=== PATIENT | male | born 1950 | race Caucasian/White ===

== ENCOUNTER 2018-04-28 10:31 | Inpatient (IN) | payer MEDICARE ==
[~2018-04-28] VITALS: Ht 188 cm; Wt 88.0 kg
[2018-04-28] MEDS ORDERED: ONDANSETRON 2MG/ML, 2ML IVPush ONE (11:30)
[2018-04-28] MEDS ORDERED: HYDROmorphone 2 MG/ML, 1ML IVPush PRN (11:30)
[2018-04-28] MEDS ORDERED: SODIUM CHLORIDE 0.9% 1,000ML IVBOLUS ONE ×2 (11:30)
[2018-04-28] MEDS ORDERED: SODIUM CHLORIDE FLUSH 10ML SYR IVF ONE (11:30)
[2018-04-28 11:52] LABS: BASOPHILS # (AUTO) 0.05 x10^3/uL (0-0.1); BASOPHILS % (AUTO) 1 % (0-1); EOSINOPHILS # (AUTO) 0.06 x10^3/uL (0-0.4); EOSINOPHILS % (AUTO) 1 % (1-7); LYMPHOCYTES # (AUTO) 1.67 x10^3/uL (1-3.4); LYMPHOCYTES % (AUTO) 15 % (22-44); MD NO; MEAN CORPUSCULAR HEMOGLOBIN 32.6 pg (27.5-34.5); MEAN CORPUSCULAR HGB CONC 34.2 g/dL (33.2-36.2); MEAN CORPUSCULAR VOLUME 95.6 fL (81-97); MEAN PLATELET VOLUME 8.1 fL (7.4-10.4); MONOCYTES # (AUTO) 0.77 x10^3/uL (0.2-0.8); MONOCYTES % (AUTO) 7 % (2-9); NEUTROPHILS # (AUTO) 8.38 x10^3/uL (1.8-6.8); NEUTROPHILS % (AUTO) 77 % (42-75); PLATELET COUNT 304 x10^3/uL (130-400); RED BLOOD COUNT 4.19 x10^6/uL (4.38-5.82); RED CELL DISTRIBUTION WIDTH 13.6 % (9.4-14.8)
[2018-04-28 12:05] LABS: ALBUMIN 4.1 g/dL (3.4-5.0); ANION GAP 9 mmol/L (5-15); CALCIUM 9.2 mg/dL (8.5-10.1); CHLORIDE 109 mmol/L (98-107)
[2018-04-28 12:09] LABS: ALANINE AMINOTRANSFERASE 22 U/L (12-78); ALKALINE PHOSPHATASE 55 U/L (45-117); CREATININE 1.07 mg/dL (0.7-1.3)
[2018-04-28] MEDS ORDERED: LIDOCAINE-MPF 1%, 5ML ONE (13:00)
[2018-04-28] MEDS ORDERED: VITA1CAP PO (13:38)
[2018-04-28] MEDS ORDERED: ASPI-515 PO (13:38)
[2018-04-28] MEDS ORDERED: ZOLP-413 PO (13:38)
[2018-04-28] MEDS ORDERED: METO25TA35 PO (13:38)
[2018-04-28] MEDS ORDERED: LISI-170 PO (13:38)
[2018-04-28] MEDS ORDERED: SILD100T PO (13:38)
[2018-04-28] MEDS ORDERED: ATOR40TA78 PO (13:38)
[2018-04-28] MEDS ORDERED: DIAZ10TA4 PO (13:38)
[2018-04-28] MEDS ORDERED: CEPH-376 PO (13:38)
[2018-04-28] MEDS ORDERED: OXYC-302 PO (13:38)
[2018-04-28 14:08] LABS: GLUCOSE, CSF 62 mg/dL (40-80); TOTAL PROTEIN,CSF 32 mg/dL (15-45)
[2018-04-28] MEDS ORDERED: LABETALOL 5MG/ML, 20ML IVPush PRN (16:00)
[2018-04-28] MEDS ORDERED: ONDANSETRON ODT 4 MG PO PRN (16:00)
[2018-04-28] MEDS ORDERED: POLYETHYLENE GLYCOL 17 GM PACKET PO PRN (16:00)
[2018-04-28] MEDS ORDERED: ONDANSETRON 2MG/ML, 2ML IVPush PRN (16:00)
[2018-04-28 16:27] VITALS: BP 162/83
[2018-04-28] MEDS ORDERED: LIDOCAINE 2%-EPI 1:100K, 20ML INFIL ONE (17:00)
[2018-04-28] MEDS: D5%-0.45NACL+KCL 20MEQ 1,000 ML IV SCH (18:26)
[2018-04-28] MEDS ORDERED: FENTANYL PF 250 MCG/5ML ONE (19:27)
[2018-04-28] MEDS ORDERED: BUPIVACAINE/PF-EPI 0.5% 1:200K ONE (19:34)
[2018-04-28] MEDS ORDERED: EPHEDRINE 50 MG/ML, 1ML ONE (19:48)
[2018-04-28] MEDS ORDERED: KETOROLAC 30 MG/1 ML ONE (19:48)
[2018-04-28] MEDS ORDERED: VASOPRESSIN 20 UNIT/ML, 1ML ONE (19:48)
[2018-04-28] MEDS ORDERED: DIPHENHYDRAMINE 50 MG/ML, 1ML IVPush PRN (20:00)
[2018-04-28] MEDS ORDERED: hydrALAzine 20 MG/ML, 1ML IV PRN (20:00)
[2018-04-28] MEDS ORDERED: MORPHINE SULFATE 4 MG/ML, 1ML IVPush PRN (20:00)
[2018-04-28] MEDS ORDERED: PROCHLORPERAZINE 5 MG/ML, 2ML IV PRN (20:00)
[2018-04-28] MEDS ORDERED: LABETALOL 5MG/ML, 20ML IV PRN (20:00)
[2018-04-28] MEDS ORDERED: HYDROcodone/APAP 7.5-325MG/15ML UDC PO PRN (20:00)
[2018-04-28] MEDS ORDERED: ONDANSETRON 2MG/ML, 2ML ONE (20:45)
[2018-04-28] MEDS ORDERED: DEXAMETHASONE 4 MG/ML, 1ML ONE (20:45)
[2018-04-28] MEDS ORDERED: SUCCINYLCHOLINE 20 MG/ML, 10ML ONE (20:45)
[2018-04-28] MEDS ORDERED: NEOSTIGMINE 1 MG/ML, 10ML ONE (20:45)
[2018-04-28] MEDS ORDERED: ROCURONIUM 10MG/ML,5ML ONE (20:45)
[2018-04-28] MEDS ORDERED: PROPOFOL 10 MG/ML, 20ML ONE (20:45)
[2018-04-28] MEDS ORDERED: GLYCOPYRROLATE 0.2MG/1ML, 5ML ONE (20:45)
[2018-04-28] MEDS ORDERED: CEFAZOLIN 1,000 MG ONE (20:45)
[2018-04-28] MEDS: OXYcodone/APAP 5/325MG TABLET PO SCH (21:00)
[2018-04-28] MEDS ORDERED: ATORVASTATIN 80 MG TABLET PO SCH (21:00)
[2018-04-28] MEDS ORDERED: ZOLPIDEM 5MG TABLET PO SCH (21:00)
[2018-04-28] MEDS ORDERED: OXYcodone 5 MG/5 ML ORAL.SOL UDC ONE (21:07)
[2018-04-28] MEDS ORDERED: FENTANYL PF 100 MCG/2ML ONE (21:07)
[2018-04-28] MEDS: FENTANYL PF 100 MCG/2ML IV PRN ×2 (21:08→21:15)
[2018-04-28] MEDS ORDERED: MEPERIDINE/PF 50 MG/ML ONE (21:25)
[2018-04-28] MEDS: MEPERIDINE/PF 25MG/0.5ML IVPush PRN ×2 (21:25→21:30)
[2018-04-28] MEDS ORDERED: OXYcodone 5 MG/5 ML ORAL.SOL UDC PO PRN (21:30)
[2018-04-28 22:00] VITALS: BP 132/75
[2018-04-28] MEDS ORDERED: MORPHINE SULFATE 4 MG/ML, 1ML IV PRN (23:00)
[2018-04-29 00:56] VITALS: BP_SYST 113; BP_SYST 123; BP_DIAS 72; BP_DIAS 78
[2018-04-29] MEDS: D5%-0.45NACL+KCL 20MEQ 1,000 ML IV SCH ×2 (02:31→10:09)
[2018-04-29 03:53] VITALS: BP 116/72
[2018-04-29 05:42] LABS: BASOPHILS # (AUTO) 0.04 x10^3/uL (0-0.1); BASOPHILS % (AUTO) 0 % (0-1); EOSINOPHILS % (AUTO) 0 % (1-7); LYMPHOCYTES # (AUTO) 0.96 x10^3/uL (1-3.4); LYMPHOCYTES % (AUTO) 11 % (22-44); MD NO; MEAN CORPUSCULAR HGB CONC 34.9 g/dL (33.2-36.2); MEAN CORPUSCULAR VOLUME 94.7 fL (81-97); MEAN PLATELET VOLUME 8.3 fL (7.4-10.4); MONOCYTES # (AUTO) 0.21 x10^3/uL (0.2-0.8); MONOCYTES % (AUTO) 2 % (2-9); NEUTROPHILS # (AUTO) 7.98 x10^3/uL (1.8-6.8); NEUTROPHILS % (AUTO) 87 % (42-75); PLATELET COUNT 260 x10^3/uL (130-400); RED BLOOD COUNT 3.49 x10^6/uL (4.38-5.82); RED CELL DISTRIBUTION WIDTH 13.3 % (9.4-14.8)
[2018-04-29 05:47] LABS: CHLORIDE 108 mmol/L (98-107)
[2018-04-29 05:56] LABS: ALANINE AMINOTRANSFERASE 18 U/L (12-78); ALBUMIN 3.4 g/dL (3.4-5.0); ALKALINE PHOSPHATASE 45 U/L (45-117); ANION GAP 7 mmol/L (5-15); BILIRUBIN,TOTAL 0.9 mg/dL (0.2-1.0); CREATININE 0.99 mg/dL (0.7-1.3); TOTAL PROTEIN 6.7 g/dL (6.4-8.2)
[2018-04-29 06:34] LABS: CULTURE INDICATED? NO; MICROSCOPIC AUTO
[2018-04-29 06:46] LABS: AMPHETAMINE SCREEN, URINE Negative (Negative); BARBITURATE SCREEN, URINE Negative (Negative); BENZODIAZEPINE SCREEN, URINE Positive (Negative); CANNABINOID SCREEN, URINE Negative (Negative); COCAINE SCREEN, URINE Negative (Negative); METHADONE SCREEN, URINE Negative (Negative); OPIATE SCREEN, URINE Positive (Negative)
[2018-04-29 06:58] VITALS: BP 117/65
[2018-04-29] MEDS: OXYcodone/APAP 5/325MG TABLET PO SCH (08:35)
[2018-04-29] MEDS: TAMSULOSIN 0.4 MG CAP.ER.24H PO SCH ×2 (08:36→09:00)
[2018-04-29] MEDS ORDERED: LISINOPRIL 10 MG TABLET PO SCH (09:00)
[2018-04-29] MEDS ORDERED: MULTIVITS,STRESS FORMULA 1 TABLET PO SCH (09:00)
[2018-04-29] MEDS ORDERED: METOPROLOL TARTRATE 25 MG TABLET PO SCH (09:00)
[2018-04-29] MEDS ORDERED: SENNA/DOCUSATE TABLET PO SCH (09:00)
== END 2018-04-29 14:22 | disposition home or self-care (01) | DRG 907 ==
LOC: ED 14:04 → EDIP 14:52 → 4NOR 16:26 → DCLOUNGE 04-29 14:15
PROVIDERS: ADMIT Internal Medicine; ATTEND Family Medicine
PROC: 0HQ6XZZ Repair Back Skin, External Approach (ICD-10-PCS; 2018-04-28)
PROC: 009U3ZX Drainage of Spinal Canal, Percutaneous Approach, Diagnostic (ICD-10-PCS; 2018-04-28)
PROC: 0WCG0ZZ Extirpation of Matter from Peritoneal Cavity, Open Approach (ICD-10-PCS; principal; 2018-04-28 21:00)
DX: L76.32 Postprocedural hematoma of skin and subcutaneous tissue following other procedure (principal); G93.41 Metabolic encephalopathy; G96.0 Cerebrospinal fluid leak; G89.29 Other chronic pain; Z87.891 Personal history of nicotine dependence; F12.90 Cannabis use, unspecified, uncomplicated; I10 Essential (primary) hypertension; E16.2 Hypoglycemia, unspecified; E78.5 Hyperlipidemia, unspecified; F03.90 Unspecified dementia, unspecified severity, without behavioral disturbance, psychotic disturbance, mood disturbance, and anxiety; G97.1 Other reaction to spinal and lumbar puncture; S30.1XXA Contusion of abdominal wall, initial encounter; Y84.4 Aspiration of fluid as the cause of abnormal reaction of the patient, or of later complication, without mention of misadventure at the time of the procedure; Z82.49 Family history of ischemic heart disease and other diseases of the circulatory system; Z88.8 Allergy status to other drugs, medicaments and biological substances
CPT/HCPCS: 36415; 70450; 71045; 74176; 80053; 80307; 81001; 82945; 82962; 83605; 83735; 84100; 84145; 84157; 85025; 87040; 87070; 87205; 87252; 89051; 93005; 99291; G0378; J0690; J1100; J1885; J2175; J2405; J2704; J2710; J3010; J3490; J0330; J3480